=== PATIENT | female | born 1990 | race African-American/Black ===

== ENCOUNTER 2024-02-19 15:55 | Emergency (ER) | payer MEDICAID ==
[~2024-02-19] VITALS: Ht 167.6 cm; Wt 127.0 kg
[2024-02-19 16:09] VITALS: O2SAT 100
[2024-02-19] MEDS: IBUPROFEN 600MG TABLET PO STA (18:12)
[2024-02-19] MEDS ORDERED: CYCL10TA21 MT (19:42)
[2024-02-19] MEDS ORDERED: IBUP-2029 MT (19:42)
[2024-02-19] MEDS: KETOROLAC 60MG/2ML VIAL IM ONE (20:02)
[2024-02-19 20:06] VITALS: BP 128/78; PULSE 78; RESP 19; TEMP 98.7
== END 2024-02-19 20:08 | disposition home or self-care (01) ==
LOC: ER 15:55
DX: S09.90XA Unspecified injury of head, initial encounter (principal); M79.10 Myalgia, unspecified site; V49.49XA Driver injured in collision with other motor vehicles in traffic accident, initial encounter; Y93.89 Activity, other specified; Y92.89 Other specified places as the place of occurrence of the external cause; Y99.8 Other external cause status
CPT/HCPCS: 99285; 70450; 71045; 81025; 73090; 73120; 73560; 73600; 96372; J1885